=== PATIENT | male | born 1975 | race Caucasian/White ===

== ENCOUNTER 2017-06-08 09:37 | Emergency (ER) | payer MEDICARE | END 2017-06-08 11:40 | disposition home or self-care (01) | LOC: D.ER 09:37 | DX: S69.92XA Unspecified injury of left wrist, hand and finger(s), initial encounter (principal); W22.8XXA Striking against or struck by other objects, initial encounter; Y93.89 Activity, other specified; Y92.89 Other specified places as the place of occurrence of the external cause; S62.633A Displaced fracture of distal phalanx of left middle finger, initial encounter for closed fracture ==

== ENCOUNTER 2017-07-27 10:15 | Emergency (ER) | payer MEDICARE | END 2017-07-27 11:20 | disposition home or self-care (01) | LOC: D.ER 10:15 | DX: S92.502A Displaced unspecified fracture of left lesser toe(s), initial encounter for closed fracture (principal); W23.0XXA Caught, crushed, jammed, or pinched between moving objects, initial encounter; Y93.89 Activity, other specified; Y92.019 Unspecified place in single-family (private) house as the place of occurrence of the external cause ==